=== PATIENT | female | born 1975 | race American Indian/Alaskan Native ===

== ENCOUNTER 2016-12-10 11:25 | Emergency (ER) | payer MEDICARE, MEDICAID ==
[2016-12-10] MEDS ORDERED: Sodium Chloride 0.9% 10 ML Syringe FLUSH PRN ×2 (12:06→14:00)
[2016-12-10] MEDS ORDERED: Sodium Chloride 0.9% 1,000 ML IV ONE (12:07)
[2016-12-10] MEDS ORDERED: HYDROmorphone 1 MG/ML Syringe IVPUSH ONE (12:08)
[2016-12-10] MEDS ORDERED: Ondansetron 4 MG/2 ML SDV IVPUSH ONE (12:08)
--- NOTE | 2016-12-10 12:13 | EDM.PDOC ---
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 Patient has a history of a hysterectomy secondary to cervical cancer and was attempting to follow-up for this with her primary surgeon who was unable to see her until the . Patient reports that since the her pain has become progressive in nature, she endorses weakness and nausea. Patient denies any fever, vomiting , diarrhea. Patient denies any vaginal bleeding or dysuria, she does complain that she feels like something is "leaking inside of her" - Related Data Allergies Allergy/AdvReac Type Severity Reaction Status Date / Time prochlorperazine edisylate Allergy Mild Hives Verified 06/18/14 13:15 [From Compazine] prochlorperazine maleate Allergy Mild Hives Verified 06/18/14 13:03 [From Compazine] Home Meds: Home Meds Calcium Carb & Citrate/Vit D3 [Calcium + D3 ER Tablet] 12/10/16 [History] Omeprazole 12/10/16 [History] Vit B12/Intrins Fact/Fa Cmb #2 [Intrinsi [id number]] 12/10/16 [History] Past Medical History Cardiovascular History: Reports: Heart Murmur 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 ED EXAM, RENAL/ - Physical Exam Exam: See Below Exam Limited By: No Limitations General Appearance: Alert, WD/WN, Anxious, Moderate Distress (secondary to pain) Head: Atraumatic Neck: Normal Inspection Respiratory/Chest: No Respiratory Distress, Lungs Clear Cardiovascular: Normal Peripheral Pulses, Regular Rate, Rhythm, No Murmur GI/Abdominal: Normal Bowel Sounds, Soft, Pelvis Stable, Tender (generalized tenderness, increased to palpation to mid pelvic region worse on the left than the right) (Female) Exam: Deferred Back Exam: Normal Inspection Extremities: Normal Inspection, Normal Range of Motion Neurological: Alert, Oriented, CN II-XII Intact Psychiatric: Normal Affect, Anxious Skin Exam: Warm, Dry, Intact Lymphatic: No Adenopathy Course - Vital Signs Last Recorded V/S: Last Vital Signs Temp 36.1 C 12/10/16 14:38 Pulse 115 H 12/10/16 14:38 Resp 14 12/10/16 14:38 BP 112/77 12/10/16 14:38 Pulse Ox 100 12/10/16 14:38 Chani is a 40 year old female with a hx of ovarian cysts who presents to the ED today with c/o increasing pelvic pain after being diagnosed with "possible ruptured cyst" on the 8th of this month. patient on exam does have mid pelvic tenderness, she is otherwise nontoxic appearing and well-hydrated. Peripheral IV was established and patient was given a liter of normal saline here with Zofran for nausea and Dilaudid for pain. Patient continued to complain of nausea and was given a dose of Reglan and Benadryl with fast improvement in her symptoms. Repeat ultrasound was obtained today and was inconclusive. Follow-up CT scan was obtained with IV contrast which is negative for any acute findings, patient does have a small hepatic cyst which she was notified of and is likely benign. Blood work was evaluated including a CBC, CMP, these are unremarkable. Urinalysis is negative for infection. Patient continues to deny any vaginal discharge, she reports she has not been sexually active for "years" and is not concerned about any STDs. I did discuss with the patient obtaining a wet prep to make sure there is no bacterial infection which she verbally consented to. Wet prep was obtained and is negative. it is not clear at this time what is causing patient's pelvic pain. I feel based on her benign and reassuring workup today in the emergency department she is stable to be discharged home. Patient is feeling much better after the emergency department stay today and is stable to be discharged home, I would like her to follow up with her primary care provider in the next week. Patient's condition take ibuprofen for her pain , 600 mg every 6 hours as needed, I will send her home with a small supply of [place] for severe pain, narcotic safety was discussed. I did check patient's opioid use on the [place] prescription monitoring program, she has no indications of opioid abuse.patient was encouraged to stay well hydrated, reasons to return to the emergency department were discussed in detail. She was agreeable to plan of care and was discharged with her friend driving. - Orders/Labs/Meds Orders: Active Orders 24 hr Category Date Time Status Peripheral IV Care [RC] . DIRECTED Care 12/10/16 12:06 Active Abdomen Pelvis w Cont [CT] Stat Exams 12/10/16 13:34 Taken Pelvis Non OB Ltd [US] Stat Exams 12/10/16 12:08 Taken Transvaginal Non OB [US] Stat Exams 12/10/16 13:15 Taken Sodium Chloride 0.9% [Saline Flush] Med 12/10/16 12:06 Active 10 ml FLUSH ASDIRECTED PRN Peripheral IV Insertion Adult [OM.PC] Routine Oth 12/10/16 12:06 Ordered Medication Orders Sodium Chloride (Saline Flush) 10 ml FLUSH ASDIRECTED PRN PRN Reason: Keep Vein Open Last Admin: 12/10/16 13:48 Dose: 10 ml Labs: Laboratory Tests 12/10/16 12/10/16 12/10/16 Range/Units 12:20 12:20 14:49 WBC 6.7 (4.5-11.0) K/uL RBC 4.87 (3.30-5.50) M/uL Hgb 14.2 (12.0-15.0) g/dL Hct 42.6 (36.0-48.0) % MCV 88 (80-98) fL MCH 29 (27-31) pg MCHC 33 (32-36) % Plt Count 287 (150-400) K/uL Neut % (Auto) 61 (36-66) % Lymph % (Auto) 30 (24-44) % B[place] % (Auto) 7 H (2-6) % Eos % (Auto) 2 (2-4) % Baso % (Auto) 0 (0-1) % Sodium 142 (140-148) mmol/L Potassium 4.5 (3.6-5.2) mmol/L Chloride 108 (100-108) mmol/L Carbon Dioxide 29 (21-32) mmol/L Anion Gap 5.0 (5.0-14.0) mmol/L BUN 10 (7-18) mg/dL Creatinine 0.8 D (0.6-1.0) mg/dL Est Cr Clr Drug Dosing 88.38 mL/min Estimated GFR (MDRD) > 60 (>60) Glucose 93 (74-106) mg/dL Calcium 8.7 (8.5-10.1) mg/dL Total Bilirubin 0.3 (0.2-1.0) mg/dL AST 17 (15-37) U/L ALT 27 (12-78) U/L Alkaline Phosphatase 102 (46-116) U/L Total Protein 7.9 (6.4-8.2) g/dL Albumin 3.7 (3.4-5.0) g/dL Globulin 4.2 H (2.3-3.5) g/dL Albumin/Globulin Ratio 0.9 L (1.2-2.2) Urine Color Yellow Urine Appearance Clear Urine pH 6.0 (4.5-8.0) Ur Specific Ola 1.010 (1.008-1.030) Urine Protein Negative (NEGATIVE) mg/dL Urine Glucose (UA) Normal (NEGATIVE) mg/dL Urine Ketones Negative (NEGATIVE) mg/dL Urine Occult Blood Negative (NEGATIVE) Urine Nitrite Negative (NEGATIVE) Urine Bilirubin Negative (NEGATIVE) Urine Urobilinogen Normal (NORMAL) mg/dL Ur Leukocyte Esterase Negative (NEGATIVE) Urine RBC 0-5 (0-5) Urine WBC 0-5 (0-5) Ur Epithelial Cells Few Amorphous Sediment Rare Urine Bacteria Few Urine Mucus Rare Meds: Medications Generic Name Dose Route Start Last Admin Trade Name Freq PRN Reason Stop Dose Admin Sodium Chloride 10 ml 12/10/16 12:06 12/10/16 13:48 Saline Flush FLUSH 10 ml ASDIRECTED PRN Administration Keep Vein Open Discontinued Medications Generic Name Dose Route Start Last Admin Trade Name Freq PRN Reason Stop Dose Admin Diphenhydramine HCl 25 mg 12/10/16 13:59 12/10/16 14:08 Benadryl IVPUSH 12/10/16 14:00 25 mg ONETIME ONE Administration Hydromorphone HCl 1 mg 08/12/17 12:08 12/10/16 13:49 Dilaudid IVPUSH 12/10/16 12:09 1 mg ONETIME ONE Administration Hydromorphone HCl 0.5 mg 12/10/16 14:00 12/10/16 14:13 Dilaudid IVPUSH 12/10/16 14:01 0.5 mg ONETIME ONE Administration Sodium Chloride 1,000 mls @ 999 mls/hr 12/10/16 12:07 12/10/16 13:49 Normal Saline IV 12/10/16 13:07 999 mls/hr .BOLUS ONE Administration Sodium Chloride 70 mls @ 3 mls/sec 12/10/16 14:00 12/10/16 14:07 Normal Saline IV 12/10/16 14:01 3 mls/sec ASDIRECTED ONE Administration Iopamidol 100 ml 12/10/16 14:00 12/10/16 14:07 Isovue-300 (61%) IV 12/10/16 14:01 100 ml . DIRECTED PRN Administration RADIOLOGY EXAM Metoclopramide HCl 5 mg 12/10/16 14:00 12/10/16 14:09 Reglan IVPUSH 12/10/16 14:01 5 mg ONETIME ONE Administration Ondansetron HCl 4 mg 12/10/16 12:08 12/10/16 13:48 Zofran IVPUSH 12/10/16 12:09 4 mg ONETIME ONE Administration Sodium Chloride 10 ml 12/10/16 14:00 12/10/16 14:07 Saline Flush FLUSH 12/10/16 14:01 10 ml . DIRECTED PRN Administration [id number] EXAM Departure - Departure Time of Disposition: 16:00 Disposition: Home, Self-Care 01 Condition: Good Clinical Impression: Pain in pelvis - Discharge Information Instructions: Pelvic Pain, Female Referrals: Jorje Mora MD [Primary Care Provider] - Forms: ED Department Discharge Additional Instructions: Chani, he can take 600 mg of ibuprofen every 6 hours as needed for pain. I have discharged you with [place] for pain which is a narcotic, please do not drive when you take this. Please make sure you're drinking plenty of fluids and follow up with her primary doctor sometime this next week. If you develop any worsening symptoms or concerns please return to the emergency department. - My Orders Last 24 Hours: My Active Orders 12/10/16 12:06 Peripheral IV Care [RC] . DIRECTED Sodium Chloride 0.9% [Saline Flush] 10 ml FLUSH ASDIRECTED PRN Peripheral IV Insertion Adult [OM.PC] Routine 12/10/16 12:08 Pelvis Non OB Ltd [US] Stat 12/10/16 13:15 Transvaginal Non OB [US] Stat 12/10/16 13:34 Abdomen Pelvis w Cont [CT] Stat - Assessment/Plan Last 24 Hours: My Active Orders 12/10/16 12:06 Peripheral IV Care [RC] . DIRECTED Sodium Chloride 0.9% [Saline Flush] 10 ml FLUSH ASDIRECTED PRN Peripheral IV Insertion Adult [OM.PC] Routine 12/10/16 12:08 Pelvis Non OB Ltd [US] Stat 12/10/16 13:15 Transvaginal Non OB [US] Stat 12/10/16 13:34 Abdomen Pelvis w Cont [CT] Stat
[2016-12-10] MEDS ORDERED: diphenhydrAMINE 50 MG/ML SDV IVPUSH ONE (13:59)
[2016-12-10] MEDS ORDERED: HYDROmorphone 0.5 MG/0.5 ML Syringe IVPUSH ONE (14:00)
[2016-12-10] MEDS ORDERED: Iopamidol 612 MG/ML 100 ML Bottle IV PRN (14:00)
[2016-12-10] MEDS ORDERED: Metoclopramide 10 MG/2 ML SDV IVPUSH ONE (14:00)
[2016-12-10 14:39] VITALS: BP 112/77
--- NOTE | 2016-12-12 10:32 | US ---
Pelvis Non OB Ltd INDICATION: Pelvic pain, recent ruptured cyst, rule out torsion TECHNIQUE: Transabdominal and transvaginal pelvic ultrasound performed. COMPARISON: 09/16/2014 FINDINGS: Exam limited by overlying bowel gas. Uterus surgically absent.Neither ovary identified. No adnexal masses seen. No free fluid seen in the pelvis. IMPRESSION: Limited study. Surgically absent uterus. Neither ovary seen. No adnexal masses.
== END 2016-12-10 15:50 | disposition home or self-care (01) ==
LOC: JP.ED 11:25
DX: R10.2 Pelvic and perineal pain (principal); R11.0 Nausea; Z90.49 Acquired absence of other specified parts of digestive tract; Z98.890 Other specified postprocedural states; Z88.8 Allergy status to other drugs, medicaments and biological substances; Z90.710 Acquired absence of both cervix and uterus; Z85.41 Personal history of malignant neoplasm of cervix uteri
CPT/HCPCS: 36415; 74177; 76830; 76857; 80053; 81001; 85025; 87210; 96361; 96374; 96375; 96376; 99284; J1170; J1200; J2405; J2765; J7030; J7040; J7050; Q9967

== ENCOUNTER 2018-12-03 22:29 | Emergency (ER) | payer MEDICARE, MEDICAID ==
[2018-12-03 22:47] VITALS: BP 167/86; PULSE 57
--- NOTE | 2018-12-03 23:33 | EDM.PDOC ---
ED HPI GENERAL MEDICAL PROBLEM - General Chief Complaint: Lower Extremity Injury/Pain Stated Complaint: CRAMP IN RIGHT LEG Time Seen by Provider: 12/03/18 23:00 Source of Information: Reports: Patient History Limitations: Reports: No Limitations - History of Present Illness INITIAL COMMENTS - FREE TEXT/NARRATIVE: 42-year-old female who is been having recurring leg pain and cramps in the right thigh and calf over the past week. She's been trying to stay hydrated and active but it doesn't seem to be helping. No increase in activity, no fevers or chills, no joint pains. She was discussing her symptoms with a relative, they said she has a blood clot in her leg and should get it checked out so she came in. Onset: Gradual Duration: Day(s): (Symptoms over the last 1-2 weeks) Location: Reports: Lower Extremity, Right Associated Symptoms: Reports: No Other Symptoms Right Leg Pain Score (Numeric/FACES): 7 - Related Data Allergies Allergy/AdvReac Type Severity Reaction Status Date / Time prochlorperazine edisylate Allergy Mild Hives Verified 12/03/18 22:52 [From Compazine] prochlorperazine maleate Allergy Mild Hives Verified 12/03/18 22:52 [From Compazine] Home Meds: Home Meds Calcium Carb & Citrate/Vit D3 [Calcium + D3 ER Tablet] 1 tab PO DAILY 12/10/16 [ History] Omeprazole 1 tab PO DAILY 12/10/16 [History] Vit B12/Intrins Fact/Fa Cmb #2 [Intrinsi [id number]] 1 tab PO DAILY 12/10/16 [ History] Estradiol 1 tab PO DAILY 12/03/18 [History] atoMOXetine HCl [Atomoxetine HCl] 1 tab PO DAILY 12/03/18 [History] Past Medical History Cardiovascular History: Reports: Heart Murmur [place] GU[employer] History: Reports: Polycystic Ovaries - Past Surgical History HEENT Surgical History: Reports: Adenoidectomy, Tonsillectomy GI Surgical History: Reports: Appendectomy, Cholecystectomy, Hernia Repair/Other Female Surgical History: Reports: Hysterectomy Social & Family History - Tobacco Use Smoking Status *Q: Never Smoker - Recreational Drug Use Recreational Drug Use: No Review of Systems - Review of Systems Review Of Systems: See Below Constitutional: Denies: Fever Respiratory: Denies: Shortness of Breath Cardiovascular: Denies: Chest Pain GI/Abdominal: Denies: Abdominal Pain Skin: Denies: Rash (No rash over the painful area, no bruising) Neurological: Denies: Paresthesia ED EXAM, GENERAL - Physical Exam Exam: See Below Exam Limited By: No Limitations General Appearance: Alert, No Apparent Distress Respiratory/Chest: No Respiratory Distress Cardiovascular: Regular Rate, Rhythm Extremities: Other (His exam is otherwise limited to the lower extremities. Both legs looks symmetric, there is no objective swelling of the right leg compared to the left. Dorsalis pedis pulses intact. She has tenderness to palpation of the gastrocnemius and hamstring area of the leg.) Course - Vital Signs Last Recorded V/S: Last Vital Signs Temp 95.6 F 12/03/18 22:51 Pulse 57 L 12/03/18 22:51 Resp 16 12/03/18 22:51 BP 167/86 H 12/03/18 22:51 Pulse Ox 97 12/03/18 22:51 - Orders/Labs/Meds Labs: Laboratory Tests 12/03/18 12/03/18 Range/Units 23:17 23:17 WBC 7.7 (4.5-11.0) K/uL RBC 4.75 (3.30-5.50) M/uL Hgb 14.0 (12.0-15.0) g/dL Hct 42.6 (36.0-48.0) % MCV 90 (80-98) fL MCH 30 (27-31) pg MCHC 33 (32-36) % Plt Count 322 (150-400) K/uL Neut % (Auto) 53 (36-66) % Lymph % (Auto) 33 (24-44) % Blair % (Auto) 10 H (2-6) % Eos % (Auto) 3 (2-4) % Baso % (Auto) 0 (0-1) % Sodium 140 (140-148) mmol/L Potassium 4.1 (3.6-5.2) mmol/L Chloride 105 (100-108) mmol/L Carbon Dioxide 26 (21-32) mmol/L Anion Gap 9.4 (5.0-14.0) mmol/L BUN 11 (7-18) mg/dL Creatinine 0.7 (0.6-1.0) mg/dL Est Cr Clr Drug Dosing 99.01 mL/min Estimated GFR (MDRD) > 60 (>60) Glucose 101 (74-106) mg/dL Calcium 8.6 (8.5-10.1) mg/dL - Re-Assessments/Exams Free Text/Narrative Re-Assessment/Exam: 12/03/18 23:33 CBC and BMP were obtained, and an ultrasound of the right lower extremity to rule out DVT was obtained. 12/04/18 00:03 Ultrasound was negative, CBC and BMP were entirely normal. Patient was reassured and encouraged to increase activity as tolerated. Departure - Departure Time of Disposition: 00:08 Disposition: Home, Self-Care 01 Clinical Impression: Cramps of right lower extremity - Discharge Information Instructions: Muscle Cramps and Spasms, [id number] Referrals: Jorje Mora MD [Primary Care Provider] - Forms: ED Department Discharge Care Plan Goals: Stay hydrated, increase activity as tolerated and recheck in 1-2 weeks if not improving.
--- NOTE | 2018-12-04 01:27 | CRLUS ---
INDICATION: Right leg cramps for 1 week TECHNIQUE: Ultrasound venous duplex lower right extremity. Compression venous exam was performed using dye-scale, color Doppler, and spectral Doppler imaging. COMPARISON: None FINDINGS: Sonographic imaging demonstrates the right common femoral, deep femoral, superficial femoral, popliteal, posterior tibial and greater saphenous and the contralateral left common femoral veins to be fully compressible with normal color Doppler blood flow. IMPRESSION: Normal right lower extremity venous ultrasound, no sign of deep venous thrombosis. Dictated by Jacinta Prater MD @ Dec 04 2018 1:25AM Signed by Dr. Jacinta Prater @ Dec 04 2018 1:26AM
== END 2018-12-04 00:13 | disposition home or self-care (01) ==
LOC: JP.ED 22:29
DX: R25.2 Cramp and spasm (principal); Z98.890 Other specified postprocedural states; Z90.49 Acquired absence of other specified parts of digestive tract; Z90.710 Acquired absence of both cervix and uterus; Z88.8 Allergy status to other drugs, medicaments and biological substances
CPT/HCPCS: 36415; 80048; 85025; 93971-RT; 99282; 99284-25

== ENCOUNTER 2019-08-18 06:00 | Inpatient (IN) | payer MEDICARE, MEDICAID ==
[2019-08-18] MEDS ORDERED: Sodium Chloride 0.9% 1,000 ML IV STA (06:36)
[2019-08-18] MEDS ORDERED: Ketamine 500 MG/5 ML MDV IV ONE (06:40)
[2019-08-18] MEDS ORDERED: fentaNYL 100 MCG/2 ML SDV IVPUSH ONE (06:40)
--- NOTE | 2019-08-18 06:44 | EDM.PDOC ---
<OfficerDarius - Last Filed: 08/18/19 06:41> ED HPI GENERAL MEDICAL PROBLEM - General Chief Complaint: Genitourinary Problem Stated Complaint: MEDICAL [facility] Time Seen by Provider: 08/18/19 06:32 Source of Information: Reports: Patient, EMS, RN Notes Reviewed History Limitations: Reports: No Limitations - History of Present Illness INITIAL COMMENTS - FREE TEXT/NARRATIVE: 43-year-old female presents emergency department the complaint of bilateral low back pain and burning with urination, she states she said urinary tract symptomology for the last 5 days for the last 3 days she has spiked a fever she admits that she was reluctant to seek care for her urinary symptoms. 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: See EMS Report Lower Back Pain Score (Numeric/FACES): 7 - Related Data Allergies Allergy/AdvReac Type Severity Reaction Status Date / Time prochlorperazine edisylate Allergy Mild Hives Verified 08/18/19 06:08 [From Compazine] prochlorperazine maleate Allergy Mild Hives Verified 08/18/19 06:08 [From Compazine] Home Meds: Home Meds estradioL [Estradiol] 1 tab PO DAILY 12/03/18 [History] Omeprazole 40 mg PO DAILY 08/18/19 [History] lamoTRIgine [Lamotrigine] 50 mg PO DAILY 08/18/19 [History] Past Medical History Cardiovascular History: Reports: Heart Murmur 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 History: Reports: Polycystic Ovaries - Infectious Disease History Infectious Disease History: Reports: Chicken Pox - Past Surgical History HEENT Surgical History: Reports: Adenoidectomy, Tonsillectomy GI Surgical History: Reports: Appendectomy, Cholecystectomy, Hernia Repair/Other Female Surgical History: Reports: Hysterectomy Social & Family History - Family History Family Medical History: Noncontributory - Tobacco Use Smoking Status *Q: Former Smoker Used Tobacco, but Quit: Yes Month/Year Tobacco Last Used: several years ago; patient report is unclear - Caffeine Use Caffeine Use: Reports: Coffee - Recreational Drug Use Recreational Drug Use: No ED ROS GENERAL - Review of Systems Review Of Systems: See Below Constitutional: Reports: Fever, Chills HEENT: Reports: No Symptoms Respiratory: Reports: No Symptoms Cardiovascular: Reports: No Symptoms GI/Abdominal: Reports: Nausea. Denies: Vomiting : Reports: Dysuria, Flank Pain Musculoskeletal: Reports: Back Pain ED EXAM, RENAL/ - Physical Exam Exam: See Below Exam Limited By: No Limitations General Appearance: Alert, Mild Distress Neck: Normal Inspection, Supple, Non-Tender, Full Range of Motion Respiratory/Chest: No Respiratory Distress, Lungs Clear, Normal Breath Sounds, No Accessory Muscle Use, Chest Non-Tender Cardiovascular: Regular Rate, Rhythm, No Murmur GI/Abdominal: Normal Bowel Sounds, Soft, Non-Tender Back Exam: Normal Inspection, Full Range of Motion, CVA Tenderness (R), CVA Tenderness (L) Course - Vital Signs Last Recorded V/S: Last Vital Signs Temp 97.3 F 08/18/19 10:28 Pulse 77 08/18/19 10:28 Resp 16 08/18/19 10:28 BP 121/59 L 08/18/19 10:28 Pulse Ox 97 08/18/19 10:28 - Orders/Labs/Meds Orders: Active Orders 24 hr Category Date Time Status CULTURE BLOOD [BC] Urgent Lab 08/18/19 06:45 Received CULTURE BLOOD [BC] Urgent Lab 08/18/19 06:55 Received CULTURE URINE [RM] Stat Lab 08/18/19 07:28 Received Blood Culture x2 Reflex Set [OM.PC] Urgent Oth 08/18/19 06:38 Ordered Medication Orders Acetaminophen (Tylenol) 650 mg PO Q4H PRN PRN Reason: Pain (Mild 1-3)/fever Last Admin: 08/18/19 11:04 Dose: 650 mg Enoxaparin Sodium (Lovenox) 40 mg SUBCUT Q24H [facility] Last Admin: 08/18/19 11:17 Dose: 40 mg Hydromorphone HCl (Dilaudid) 0.5 mg IVPUSH Q2H PRN PRN Reason: Pain Last Admin: 08/18/19 10:45 Dose: 0.5 mg Sodium Chloride (Normal Saline) 1,000 mls @ 250 mls/hr IV ASDIRECTED [facility] Last Admin: 08/18/19 08:38 Dose: 250 mls/hr Ceftriaxone Sodium 1 gm/ (Sodium Chloride) 50 mls @ 100 mls/hr IV Q24H [facility] Last Admin: 08/18/19 10:58 Dose: 100 mls/hr Sodium Chloride (Normal Saline) 1,000 mls @ 125 mls/hr IV ASDIRECTED GAB Lamotrigine (Lamotrigine) 50 mg PO BEDTIME GAB Non-Formulary Medication (Estradiol [Estradiol]) 1 tab PO DAILY GAB Ondansetron HCl (Zofran) 4 mg IV Q4H PRN PRN Reason: Nausea/Vomiting Pantoprazole Sodium (Protonix) 40 mg PO ACBREAKFAST GAB Polyethylene Glycol (Miralax) 17 gm PO DAILY PRN PRN Reason: Constipation Sodium Chloride (Saline Flush) 10 ml FLUSH ASDIRECTED PRN PRN Reason: Keep Vein Open Labs: Laboratory Tests 08/18/19 08/18/19 08/18/19 Range/Units 06:18 06:55 06:55 WBC 13.2 H (4.5-11.0) K/uL RBC 4.59 (3.30-5.50) M/uL Hgb 13.3 (12.0-15.0) g/dL Hct 39.7 (36.0-48.0) % MCV 87 (80-98) fL MCH 29 (27-31) pg MCHC 34 (32-36) % Plt Count 326 (150-400) K/uL Neut % (Auto) 81 H (36-66) % Lymph % (Auto) 9 L (24-44) % [place] % (Auto) 10 H (2-6) % Eos % (Auto) 0 L (2-4) % Baso % (Auto) 0 (0-1) % Sodium 133 L (140-148) mmol/L Potassium 3.7 (3.6-5.2) mmol/L Chloride 99 L (100-108) mmol/L Carbon Dioxide 25 (21-32) mmol/L Anion Gap 12.7 (5.0-14.0) mmol/L BUN 6 L (7-18) mg/dL Creatinine 0.6 (0.6-1.0) mg/dL Est Cr Clr Drug Dosing 113.70 mL/min Estimated GFR (MDRD) > 60 (>60) Glucose 99 (74-106) mg/dL Lactic Acid (0.4-2.0) mmol/L Calcium 7.8 L (8.5-10.1) mg/dL Total Bilirubin 0.4 (0.2-1.0) mg/dL AST 31 D (15-37) U/L ALT 60 D (12-78) U/L Alkaline Phosphatase 127 H (46-116) U/L C-Reactive Protein (0.0-0.3) mg/dL Total Protein 6.8 (6.4-8.2) g/dL Albumin 3.0 L (3.4-5.0) g/dL Globulin 3.8 H (2.3-3.5) g/dL Albumin/Globulin Ratio 0.8 L (1.2-2.2) Lipase 93 (73-393) U/L Procalcitonin ng/mL Urine Color Yellow (YELLOW) Urine Appearance Slightly cloudy A (CLEAR) Urine pH 7.0 (5.0-8.0) Ur Specific [place] 1.015 (1.008-1.030) Urine Protein Negative (NEGATIVE) mg/dL Urine Glucose (UA) Negative (NEGATIVE) mg/dL Urine Ketones 15 H (NEGATIVE) mg/dL Urine Occult Blood Moderate H (NEGATIVE) Urine Nitrite Negative (NEGATIVE) Urine Bilirubin Negative (NEGATIVE) Urine Urobilinogen 0.2 (0.2-1.0) EU/dL Ur Leukocyte Esterase Large H (NEGATIVE) Urine RBC 5-10 H (0-5) Urine WBC 20-30 H (0-5) Ur Epithelial Cells Rare Amorphous Sediment Not seen Urine Bacteria Moderate Urine Mucus Not seen 08/18/19 08/18/19 08/18/19 Range/Units 06:55 06:55 06:55 WBC (4.5-11.0) K/uL RBC (3.30-5.50) M/uL Hgb (12.0-15.0) g/dL Hct (36.0-48.0) % MCV (80-98) fL MCH (27-31) pg MCHC (32-36) % Plt Count (150-400) K/uL Neut % (Auto) (36-66) % Lymph % (Auto) (24-44) % [place] % (Auto) (2-6) % Eos % (Auto) (2-4) % Baso % (Auto) (0-1) % Sodium (140-148) mmol/L Potassium (3.6-5.2) mmol/L Chloride (100-108) mmol/L Carbon Dioxide (21-32) mmol/L Anion Gap (5.0-14.0) mmol/L BUN (7-18) mg/dL Creatinine (0.6-1.0) mg/dL Est Cr Clr Drug Dosing mL/min Estimated GFR (MDRD) (>60) Glucose (74-106) mg/dL Lactic Acid 0.9 (0.4-2.0) mmol/L Calcium (8.5-10.1) mg/dL Total Bilirubin (0.2-1.0) mg/dL AST (15-37) U/L ALT (12-78) U/L Alkaline Phosphatase (46-116) U/L C-Reactive Protein 9.73 H (0.0-0.3) mg/dL Total Protein (6.4-8.2) g/dL Albumin (3.4-5.0) g/dL Globulin (2.3-3.5) g/dL Albumin/Globulin Ratio (1.2-2.2) Lipase (73-393) U/L Procalcitonin 0.08 ng/mL Urine Color (YELLOW) Urine Appearance (CLEAR) Urine pH (5.0-8.0) Ur Specific [place] (1.008-1.030) Urine Protein (NEGATIVE) mg/dL Urine Glucose (UA) (NEGATIVE) mg/dL Urine Ketones (NEGATIVE) mg/dL Urine Occult Blood (NEGATIVE) Urine Nitrite (NEGATIVE) Urine Bilirubin (NEGATIVE) Urine Urobilinogen (0.2-1.0) EU/dL Ur Leukocyte Esterase (NEGATIVE) Urine RBC (0-5) Urine WBC (0-5) Ur Epithelial Cells Amorphous Sediment Urine Bacteria Urine Mucus Meds: Medications Generic Name Dose Route Start Last Admin Trade Name Freq PRN Reason Stop Dose Admin Acetaminophen 650 mg 08/18/19 10:30 08/18/19 11:04 Tylenol PO 650 mg Q4H PRN Administration Pain (Mild 1-3)/fever Enoxaparin Sodium 40 mg 08/18/19 11:00 08/18/19 11:17 Lovenox SUBCUT 40 mg Q24H GAB Administration Hydromorphone HCl 0.5 mg 08/18/19 10:30 08/18/19 10:45 Dilaudid IVPUSH 0.5 mg Q2H PRN Administration Pain Sodium Chloride 1,000 mls @ 250 mls/hr 08/18/19 08:45 08/18/19 08:38 Normal Saline IV 250 mls/hr ASDIRECTED GAB Administration Ceftriaxone Sodium 1 gm/ 50 mls @ 100 mls/hr 08/18/19 11:00 08/18/19 10:58 Sodium Chloride IV 100 mls/hr Q24H GAB Administration Sodium Chloride 1,000 mls @ 125 mls/hr 08/18/19 10:30 Normal Saline IV ASDIRECTED GAB Lamotrigine 50 mg 08/18/19 21:00 Lamotrigine PO BEDTIME GAB Non-Formulary Medication 1 tab 08/18/19 10:30 Estradiol [Estradiol] PO DAILY GAB Ondansetron HCl 4 mg 08/18/19 10:30 Zofran IV Q4H PRN Nausea/Vomiting Pantoprazole Sodium 40 mg 08/19/19 07:30 Protonix PO ACBREAKFAST GAB Polyethylene Glycol 17 gm 08/18/19 10:30 Miralax PO DAILY PRN Constipation Sodium Chloride 10 ml 08/18/19 10:30 Saline Flush FLUSH ASDIRECTED PRN Keep Vein Open Discontinued Medications Generic Name Dose Route Start Last Admin Trade Name Freq PRN Reason Stop Dose Admin Fentanyl 50 mcg 08/18/19 06:40 08/18/19 06:53 Sublimaze IVPUSH 08/18/19 06:41 50 mcg ONETIME ONE Administration Hydromorphone HCl 0.5 mg 08/18/19 09:08 08/18/19 09:11 Dilaudid IVPUSH 08/18/19 09:09 0.5 mg ONETIME ONE Administration Ceftriaxone Sodium 1 gm/ 50 mls @ 100 mls/hr 08/18/19 06:45 08/18/19 07:04 Sodium Chloride IV 100 mls/hr Q24H GAB Administration Sodium Chloride 1,000 mls @ 999 mls/hr 08/18/19 06:36 08/18/19 06:54 Normal Saline IV 08/18/19 07:36 999 mls/hr .BOLUS STA Administration Ketamine HCl 15 mg 08/18/19 06:40 08/18/19 06:53 Ketalar IV 08/18/19 06:41 15 mg ONETIME ONE Administration Ketorolac Tromethamine 15 mg 08/18/19 07:41 08/18/19 07:48 Toradol IVPUSH 08/18/19 07:42 15 mg ONETIME ONE Administration Lamotrigine 25 mg 08/18/19 10:30 08/18/19 11:31 Lamotrigine PO Not Given DAILY [facility] Non-Formulary Medication 1 tab 08/18/19 10:30 08/18/19 11:32 Omeprazole [Omeprazole] PO Not Given DAILY GAB Ondansetron HCl 4 mg 08/18/19 07:42 08/18/19 07:48 Zofran IVPUSH 08/18/19 07:43 4 mg ONETIME ONE Administration Departure - Departure Disposition: Admitted As Inpatient 67 Clinical Impression: Pyelonephritis - Discharge Information Sepsis Event Note - Evaluation Sepsis Screening Result: Possible Sepsis Risk - Focused Exam Vital Signs: Vital Signs Temp Pulse Resp BP Pulse Ox 08/18/19 06:13 100.3 F 106 H 18 127/64 95 Date Exam was Performed: 08/18/19 Time Exam was Performed: 06:41 - My Orders Last 24 Hours: My Active Orders 08/18/19 07:28 CULTURE URINE [RM] Stat - Assessment/Plan Last 24 Hours: My Active Orders 08/18/19 07:28 CULTURE URINE [RM] Stat <Andre Rivero D - Last Filed: 08/18/19 11:49> Course - Re-Assessments/Exams Free Text/Narrative Re-Assessment/Exam: 08/18/19 08:23 Patient care received from Officer pending lab and response to treatment. White count is 13,200, lactic acid and procalcitonin are normal. Even after IV ketamine, Dilaudid, Toradol and Zofran patient was still significantly symptomatic. I do not think she is going to tolerate outpatient treatment, and I discussed her case with Dr. Martin of the hospital service and he is going to see the patient to consider admission for IV antibiotics and symptom treatment for pyelonephritis. She still has significant CVA tenderness, especially on the left side. Departure - Departure Time of Disposition: 10:18 Sepsis Event Note - Focused Exam Date Exam was Performed: 08/18/19 Time Exam was Performed: 11:49
[2019-08-18] MEDS ORDERED: cefTRIAXone 1 GM in Sodium Chloride 0.9% 50 ML IV SCH (06:45)
[2019-08-18] MEDS ORDERED: Ketorolac 30 MG/ML SDV IVPUSH ONE (07:41)
[2019-08-18] MEDS ORDERED: Ondansetron 4 MG/2 ML SDV IVPUSH ONE (07:42)
--- NOTE | 2019-08-18 08:39 | PCM.HP.2 ---
H&P History of Present Illness - General Date of Service: 08/18/19 Admit Problem/Dx: Admission Diagnosis/Problem Admission Diagnosis/Problem Pyelonephritis Source of Information: Patient, Provider, RN Notes Reviewed History Limitations: Reports: No Limitations - History of Present Illness Initial Comments - Free Text/Narative: Ms. Olivera is a 43-year-old woman who was admitted through the emergency department with fever, weakness, abdominal and flank pain, secondary to pyelonephritis. She reports first developing urinary symptoms approximately 6 days ago including dysuria, hesitancy, and increased frequency of urination. 3 days ago began to develop fever with progressive weakness. On evaluation in the emergency department white blood cell count is elevated as well as CRP, urinalysis shows evidence of infection and she is noted to have flank pain on physical exam. She was given vigorous IV fluid replacement in the emergency department. Blood cultures and urine culture were obtained and she was started on IV antibiotic therapy with ceftriaxone. She continues to experience a fair amount of pain as well as some nausea. 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 - Infectious Disease History Infectious Disease History: Reports: Chicken Pox - Past Surgical History HEENT Surgical History: Reports: Adenoidectomy, Tonsillectomy GI Surgical History: Reports: Appendectomy, Cholecystectomy, Hernia Repair/Other Female Surgical History: Reports: Hysterectomy Social & Family History - Family History Family Medical History: Noncontributory - Tobacco Use Smoking Status *Q: Former Smoker Used Tobacco, but Quit: Yes Month/Year Tobacco Last Used: several years ago; patient report is unclear - Caffeine Use Caffeine Use: Reports: Coffee - Recreational Drug Use Recreational Drug Use: No H&P Review of Systems - Review of Systems: Review Of Systems: See Below General: Reports: Fever, Chills, Weakness, Decreased Appetite HEENT: Reports: No Symptoms Pulmonary: Reports: No Symptoms Cardiovascular: Reports: No Symptoms Gastrointestinal: Reports: Abdominal Pain, Nausea. Denies: Constipation, Diarrhea, Difficulty Swallowing, Distension, Hematemesis, Hematochezia, Melena, Vomiting Genitourinary: Reports: Dysuria, Frequency, Flank Pain Musculoskeletal: Reports: No Symptoms Skin: Reports: No Symptoms Psychiatric: Reports: No Symptoms Neurological: Reports: No Symptoms Hematologic/Lymphatic: Reports: No Symptoms Immunologic: Reports: No Symptoms Exam - Exam Exam: See Below - Vital Signs Vital Signs: Last Vital Signs Temp 100.3 F 08/18/19 06:13 Pulse 106 H 08/18/19 06:13 Resp 18 08/18/19 06:13 BP 127/64 08/18/19 06:13 Pulse Ox 95 08/18/19 06:13 Weight: 130 lb - Exam Quality Assessment: DVT Prophylaxis General: Alert, Oriented, Cooperative, Moderate Distress HEENT: Conjunctiva Clear, Hearing Intact, Normal Nasal Septum, Posterior Pharynx Clear, Pupils Equal. No: Mucosa Moist & [place] Neck: Supple, Trachea Midline, +2 Carotid Pulse wo Bruit Lungs: Clear to Auscultation, Normal Respiratory Effort Cardiovascular: Regular Rhythm, Normal S1, Normal S2, Tachycardia. No: Systolic Murmur, Diastolic Murmur GI/Abdominal Exam: Soft, No Organomegaly, Tender. No: Distended, Guarding, Rigid, Rebound Extremities: Non-Tender, No Pedal Edema Skin: Warm, Dry, Intact Neurological: Cranial Nerves Intact, Normal Speech, Normal Tone, Sensation Intact. No: Focal Deficit Neuro Extensive - Mental Status: Alert, Oriented x3, Normal Mood/Affect, Normal Cognition, Memory Intact - Patient Data Lab Results Last 24 hrs: Laboratory Results - last 24 hr 08/18/19 08/18/19 08/18/19 Range/Units 06:18 06:55 06:55 WBC 13.2 H (4.5-11.0) K/uL RBC 4.59 (3.30-5.50) M/uL Hgb 13.3 (12.0-15.0) g/dL Hct 39.7 (36.0-48.0) % MCV 87 (80-98) fL MCH 29 (27-31) pg MCHC 34 (32-36) % Plt Count 326 (150-400) K/uL Neut % (Auto) 81 H (36-66) % Lymph % (Auto) 9 L (24-44) % [place] % (Auto) 10 H (2-6) % Eos % (Auto) 0 L (2-4) % Baso % (Auto) 0 (0-1) % Sodium 133 L (140-148) mmol/L Potassium 3.7 (3.6-5.2) mmol/L Chloride 99 L (100-108) mmol/L Carbon Dioxide 25 (21-32) mmol/L Anion Gap 12.7 (5.0-14.0) mmol/L BUN 6 L (7-18) mg/dL Creatinine 0.6 (0.6-1.0) mg/dL Est Cr Clr Drug Dosing 113.70 mL/min Estimated GFR (MDRD) > 60 (>60) Glucose 99 (74-106) mg/dL Lactic Acid (0.4-2.0) mmol/L Calcium 7.8 L (8.5-10.1) mg/dL Total Bilirubin 0.4 (0.2-1.0) mg/dL AST 31 D (15-37) U/L ALT 60 D (12-78) U/L Alkaline Phosphatase 127 H (46-116) U/L C-Reactive Protein (0.0-0.3) mg/dL Total Protein 6.8 (6.4-8.2) g/dL Albumin 3.0 L (3.4-5.0) g/dL Globulin 3.8 H (2.3-3.5) g/dL Albumin/Globulin Ratio 0.8 L (1.2-2.2) Lipase 93 (73-393) U/L Procalcitonin ng/mL Urine Color Yellow (YELLOW) Urine Appearance Slightly cloudy A (CLEAR) Urine pH 7.0 (5.0-8.0) Ur Specific [place] 1.015 (1.008-1.030) Urine Protein Negative (NEGATIVE) mg/dL Urine Glucose (UA) Negative (NEGATIVE) mg/dL Urine Ketones 15 H (NEGATIVE) mg/dL Urine Occult Blood Moderate H (NEGATIVE) Urine Nitrite Negative (NEGATIVE) Urine Bilirubin Negative (NEGATIVE) Urine Urobilinogen 0.2 (0.2-1.0) EU/dL Ur Leukocyte Esterase Large H (NEGATIVE) Urine RBC 5-10 H (0-5) Urine WBC 20-30 H (0-5) Ur Epithelial Cells Rare Amorphous Sediment Not seen Urine Bacteria Moderate Urine Mucus Not seen 08/18/19 08/18/19 08/18/19 Range/Units 06:55 06:55 06:55 WBC (4.5-11.0) K/uL RBC (3.30-5.50) M/uL Hgb (12.0-15.0) g/dL Hct (36.0-48.0) % MCV (80-98) fL MCH (27-31) pg MCHC (32-36) % Plt Count (150-400) K/uL Neut % (Auto) (36-66) % Lymph % (Auto) (24-44) % [place] % (Auto) (2-6) % Eos % (Auto) (2-4) % Baso % (Auto) (0-1) % Sodium (140-148) mmol/L Potassium (3.6-5.2) mmol/L Chloride (100-108) mmol/L Carbon Dioxide (21-32) mmol/L Anion Gap (5.0-14.0) mmol/L BUN (7-18) mg/dL Creatinine (0.6-1.0) mg/dL Est Cr Clr Drug Dosing mL/min Estimated GFR (MDRD) (>60) Glucose (74-106) mg/dL Lactic Acid 0.9 (0.4-2.0) mmol/L Calcium (8.5-10.1) mg/dL Total Bilirubin (0.2-1.0) mg/dL AST (15-37) U/L ALT (12-78) U/L Alkaline Phosphatase (46-116) U/L C-Reactive Protein 9.73 H (0.0-0.3) mg/dL Total Protein (6.4-8.2) g/dL Albumin (3.4-5.0) g/dL Globulin (2.3-3.5) g/dL Albumin/Globulin Ratio (1.2-2.2) Lipase (73-393) U/L Procalcitonin 0.08 ng/mL Urine Color (YELLOW) Urine Appearance (CLEAR) Urine pH (5.0-8.0) Ur Specific [place] (1.008-1.030) Urine Protein (NEGATIVE) mg/dL Urine Glucose (UA) (NEGATIVE) mg/dL Urine Ketones (NEGATIVE) mg/dL Urine Occult Blood (NEGATIVE) Urine Nitrite (NEGATIVE) Urine Bilirubin (NEGATIVE) Urine Urobilinogen (0.2-1.0) EU/dL Ur Leukocyte Esterase (NEGATIVE) Urine RBC (0-5) Urine WBC (0-5) Ur Epithelial Cells Amorphous Sediment Urine Bacteria Urine Mucus Result Diagrams: 08/18/19 06:55 08/18/19 06:55 Sepsis Event Note - Evaluation Sepsis Screening Result: Possible Sepsis Risk - Focused Exam Vital Signs: Vital Signs Temp Pulse Resp BP Pulse Ox 08/18/19 06:13 100.3 F 106 H 18 127/64 95 Date Exam was Performed: 08/18/19 Time Exam was Performed: 10:50 *Q Meaningful Use (ADM) - VTE Risk Assess *Q Each Risk Factor Represents 1 Point: Age 41 - 59 years, Oral Contraceptives or Hormone Replacement Therapy Total Score 1 Point Risk Factors: 2 Each Risk Factor Represents 2 Points: None Total Score 2 Point Risk Factors: 0 Each Risk Factor Represents 3 Points: None Total Score 3 Point Risk Factors: 0 Each Risk Factor Represents 5 Points: None Total Score 5 Point Risk Factors: 0 Venous Thromboembolism Risk Factor Score *Q: 2 Problem List Initiated/Reviewed/Updated: Yes Orders Last 24hrs: Active Orders 24 hr Category Date Time Status Patient Status Manage Transfer [TRANSFER] Routine ADT 08/18/19 08:33 Ordered CULTURE BLOOD [BC] Urgent Lab 08/18/19 06:45 Received CULTURE BLOOD [BC] Urgent Lab 08/18/19 06:55 Received CULTURE URINE [RM] Stat Lab 08/18/19 07:28 Received Sodium Chloride 0.9% [Normal Saline] 1,000 ml Med 08/18/19 08:45 Active IV ASDIRECTED cefTRIAXone [Rocephin] 1 gm Med 08/18/19 06:45 Active Sodium Chloride 0.9% [Normal Saline] 50 ml IV Q24H Blood Culture x2 Reflex Set [OM.PC] Urgent Oth 08/18/19 06:38 Ordered Severe Sepsis Onset Time [OM.PC] Stat Oth 08/18/19 06:38 Ordered Resuscitation Status Routine Resus Stat 08/18/19 08:35 Ordered Medication Orders Ceftriaxone Sodium 1 gm/ (Sodium Chloride) 50 mls @ 100 mls/hr IV Q24H [facility] Last Admin: 08/18/19 07:04 Dose: 100 mls/hr Sodium Chloride (Normal Saline) 1,000 mls @ 250 mls/hr IV ASDIRECTED [facility] Last Admin: 08/18/19 08:38 Dose: 250 mls/hr Assessment/Plan Comment:: ASSESSMENT AND PLAN PYELONEPHRITIS-symptoms of UTI present for the past 6 days, fever with progressive weakness and nausea over the last 3 days. There has been associated flank and abdominal pain. White blood cell count is elevated and urinalysis is consistent with infection. -Blood and urine cultures pending -Rocephin 1 g IV every 24 hours, pending culture results -IV fluids for hydration -Pain and nausea medication as needed MAINTENANCE ISSUES -DVT prophylaxis; Lovenox 40 mg subcu daily -GI prophylaxis; continue outpatient PPI therapy -[place] catheter; not indicated -Nutrition; regular diet -Nicotine dependence; not required CODE STATUS-FULL CODE ADMISSION STATUS-patient will be admitted to inpatient status, expect at least a 2 night hospital stay for evaluation and management of problems as outlined above. At the time of this admission I do not reasonably expected evaluation and management of this problem will require more than a 96 hour hospital stay. DISPOSITION-anticipate discharge to home after the hospital stay. PRIMARY CARE PROVIDER- - Mortality Measure Prognosis:: Good
[2019-08-18] MEDS ORDERED: Sodium Chloride 0.9% 1,000 ML IV SCH (08:45)
[2019-08-18] MEDS ORDERED: HYDROmorphone 0.5 MG/0.5 ML Syringe IVPUSH ONE (09:08)
[2019-08-18] MEDS ORDERED: Sodium Chloride 0.9% 10 ML Syringe FLUSH PRN (10:30)
[2019-08-18] MEDS ORDERED: OMEPRAZOLE PO SCH (10:30)
[2019-08-18] MEDS ORDERED: Polyethylene Glycol 3350 Powder 17 GM Packet PO PRN (10:30)
[2019-08-18] MEDS ORDERED: ESTRADIOL PO SCH (10:30)
[2019-08-18] MEDS ORDERED: lamoTRIgine 25 MG Tab PO SCH (10:30)
[2019-08-18] MEDS: HYDROmorphone 0.5 MG/0.5 ML Syringe IVPUSH PRN ×6 (10:45→22:34)
[2019-08-18] MEDS: cefTRIAXone 1 GM in Sodium Chloride 0.9% 50 ML IV SCH (10:58)
[2019-08-18] MEDS: Acetaminophen 325 MG Tab PO PRN ×3 (11:04→20:26)
[2019-08-18] MEDS: Enoxaparin 40 MG/0.4 ML Syringe SUBCUT SCH (11:17)
[2019-08-18] MEDS: Sodium Chloride 0.9% 1,000 ML IV SCH ×2 (12:57→20:30)
[2019-08-18] MEDS: Ondansetron 4 MG/2 ML SDV IV PRN (14:29)
[2019-08-18] MEDS ORDERED: Non-Formulary Medication 1 Each (Estradiol [Estradiol] 1 MG) PO SCH (20:00)
[2019-08-18] MEDS: Estradiol 0.5 MG Tab PO SCH (20:26)
[2019-08-18] MEDS: lamoTRIgine 25 MG Tab PO SCH (20:26)
[2019-08-19] MEDS: Acetaminophen 325 MG Tab PO PRN ×2 (02:09→06:02)
[2019-08-19] MEDS: HYDROmorphone 0.5 MG/0.5 ML Syringe IVPUSH PRN ×5 (02:10→19:37)
[2019-08-19] MEDS: Ondansetron 4 MG/2 ML SDV IV PRN ×4 (03:18→17:37)
[2019-08-19] MEDS: Sodium Chloride 0.9% 1,000 ML IV SCH ×2 (04:26→15:40)
[2019-08-19] MEDS: Pantoprazole 40 MG Tab.CR PO SCH (07:25)
[2019-08-19] MEDS ORDERED: Potassium Chloride 20 MEQ Tab.ER PO ONE (08:00)
[2019-08-19] MEDS: Enoxaparin 40 MG/0.4 ML Syringe SUBCUT SCH (10:23)
[2019-08-19] MEDS: cefTRIAXone 1 GM in Sodium Chloride 0.9% 50 ML IV SCH (10:24)
--- NOTE | 2019-08-19 10:50 | PCM.PN ---
- General Info Date of Service: 08/19/19 Subjective Update: No acute events overnight. Low-grade fever overnight but temperature normal this morning. Still having a fair amount of pain in both flank areas. She does not think the pain is any better today. She has been using less IV pain medication over the past 12 hours. Still has some nausea but is able to keep some food and fluid down. She also has moderate generalized abdominal pain. Urine culture is growing 2 different gram-negative rods but identification is pending. Functional Status: Reports: Pain Controlled, Tolerating Diet - Review of Systems General: Denies: Fever Gastrointestinal: Reports: Abdominal Pain, Nausea Genitourinary: Reports: Flank Pain - Patient Data Vitals - Most Recent: Last Vital Signs Temp 36.1 C 08/19/19 07:19 Pulse 71 08/19/19 07:19 Resp 16 08/19/19 07:19 BP 99/62 08/19/19 07:19 Pulse Ox 93 L 08/19/19 07:40 Weight - Most Recent: 58.967 kg I&O - Last 24 Hours: Intake & Output 08/18/19 08/19/19 08/19/19 22:59 06:59 14:59 Intake Total 1703 1785 Output Total 2100 1100 900 Balance -397 685 -900 Lab Results Last 24 Hours: Laboratory Results - last 24 hr 08/19/19 08/19/19 Range/Units 05:30 05:30 WBC 9.8 (4.5-11.0) K/uL RBC 4.18 (3.30-5.50) M/uL Hgb 11.7 L (12.0-15.0) g/dL Hct 36.8 (36.0-48.0) % MCV 88 (80-98) fL MCH 28 (27-31) pg MCHC 32 (32-36) % Plt Count 327 (150-400) K/uL Neut % (Auto) 75 H (36-66) % Lymph % (Auto) 12 L (24-44) % [place] % (Auto) 13 H (2-6) % Eos % (Auto) 0 L (2-4) % Baso % (Auto) 0 (0-1) % Sodium 136 L (140-148) mmol/L Potassium 3.4 L (3.6-5.2) mmol/L Chloride 102 (100-108) mmol/L Carbon Dioxide 25 (21-32) mmol/L Anion Gap 12.4 (5.0-14.0) mmol/L BUN 4 L (7-18) mg/dL Creatinine 0.6 (0.6-1.0) mg/dL Est Cr Clr Drug Dosing 113.70 mL/min Estimated GFR (MDRD) > 60 (>60) Glucose 99 (74-106) mg/dL Calcium 7.6 L (8.5-10.1) mg/dL Deni Results Last 24 Hours: Microbiology 08/18/19 06:55 Aerobic Blood Culture - Preliminary Blood - Arm, Right NO GROWTH AFTER 1 DAY Anaerobic Blood Culture - Preliminary NO GROWTH AFTER 1 DAY 08/18/19 06:45 Aerobic Blood Culture - Preliminary Blood - Venous NO GROWTH AFTER 1 DAY Anaerobic Blood Culture - Preliminary NO GROWTH AFTER 1 DAY 08/18/19 07:28 Urine Culture - Preliminary Urine, Clean Catch Med Orders - Current: Current Medications Acetaminophen (Tylenol) 650 mg PO Q4H PRN PRN Reason: Pain (Mild 1-3)/fever Last Admin: 08/19/19 06:02 Dose: 650 mg Enoxaparin Sodium (Lovenox) 40 mg SUBCUT Q24H [facility] Last Admin: 08/19/19 10:23 Dose: 40 mg Estradiol (Estradiol) 1 mg PO BEDTIME [facility] Last Admin: 08/18/19 20:26 Dose: 1 mg Hydromorphone HCl (Dilaudid) 0.5 mg IVPUSH Q2H PRN PRN Reason: Pain Last Admin: 08/19/19 10:21 Dose: 0.5 mg Ceftriaxone Sodium 1 gm/ (Sodium Chloride) 50 mls @ 100 mls/hr IV Q24H [facility] Last Admin: 08/19/19 10:24 Dose: 100 mls/hr Sodium Chloride (Normal Saline) 1,000 mls @ 50 mls/hr IV ASDIRECTED [facility] Last Admin: 08/19/19 04:26 Dose: 125 mls/hr Ketorolac Tromethamine (Toradol) 30 mg IVPUSH Q6H PRN PRN Reason: Pain (moderate 4-6) Stop: 08/24/19 10:12 Lamotrigine (Lamotrigine) 50 mg PO BEDTIME [facility] Last Admin: 08/18/19 20:26 Dose: 50 mg Ondansetron HCl (Zofran) 4 mg IV Q4H PRN PRN Reason: Nausea/Vomiting Last Admin: 08/19/19 07:44 Dose: 4 mg Pantoprazole Sodium (Protonix) 40 mg PO ACBREAKFAST [facility] Last Admin: 08/19/19 07:25 Dose: 40 mg Polyethylene Glycol (Miralax) 17 gm PO DAILY PRN PRN Reason: Constipation Senna/Docusate Sodium (Senna Plus) 1 tab PO BID PRN PRN Reason: Constipation Last Admin: 08/19/19 07:42 Dose: 1 tab Sodium Chloride (Saline Flush) 10 ml FLUSH ASDIRECTED PRN PRN Reason: Keep Vein Open Discontinued Medications Fentanyl (Sublimaze) 50 mcg IVPUSH ONETIME ONE Stop: 08/18/19 06:41 Last Admin: 08/18/19 06:53 Dose: 50 mcg Hydromorphone HCl (Dilaudid) 0.5 mg IVPUSH ONETIME ONE Stop: 08/18/19 09:09 Last Admin: 08/18/19 09:11 Dose: 0.5 mg Ceftriaxone Sodium 1 gm/ (Sodium Chloride) 50 mls @ 100 mls/hr IV Q24H [facility] Last Admin: 08/18/19 07:04 Dose: 100 mls/hr Sodium Chloride (Normal Saline) 1,000 mls @ 999 mls/hr IV .BOLUS STA Stop: 08/18/19 07:36 Last Admin: 08/18/19 06:54 Dose: 999 mls/hr Sodium Chloride (Normal Saline) 1,000 mls @ 250 mls/hr IV ASDIRECTED [facility] Last Admin: 08/18/19 08:38 Dose: 250 mls/hr Ketamine HCl (Ketalar) 15 mg IV ONETIME ONE Stop: 08/18/19 06:41 Last Admin: 08/18/19 06:53 Dose: 15 mg Ketorolac Tromethamine (Toradol) 15 mg IVPUSH ONETIME ONE Stop: 08/18/19 07:42 Last Admin: 08/18/19 07:48 Dose: 15 mg Lamotrigine (Lamotrigine) 25 mg PO DAILY [facility] Last Admin: 08/18/19 11:31 Dose: Not Given Non-Formulary Medication (Estradiol [Estradiol]) 1 tab PO DAILY [facility] Last Admin: 08/18/19 13:00 Dose: Not Given Non-Formulary Medication (Omeprazole [Omeprazole]) 1 tab PO DAILY [facility] Last Admin: 08/18/19 11:32 Dose: Not Given Ondansetron HCl (Zofran) 4 mg IVPUSH ONETIME ONE Stop: 08/18/19 07:43 Last Admin: 08/18/19 07:48 Dose: 4 mg Potassium Chloride (Klor-Con M20) 40 meq PO ONETIME ONE Stop: 08/19/19 08:01 Last Admin: 08/19/19 09:13 Dose: 40 meq - Exam Quality Assessment: No: Supplemental Oxygen General: Alert, Oriented, Cooperative, No Acute Distress Lungs: Normal Respiratory Effort Cardiovascular: Regular Rate, Regular Rhythm GI/Abdominal Exam: Soft, No Distention, Tender Extremities: No Pedal Edema. No: Increased Warmth Skin: Warm, Dry Psy/Mental Status: Alert, Normal Affect Sepsis Event Note - Evaluation Sepsis Screening Result: No Definite Risk - Focused Exam Vital Signs: Vital Signs Temp Temp Pulse Pulse Resp BP Pulse Ox 08/19/19 07:40 93 L 08/19/19 07:38 95 08/19/19 07:19 36.1 C 71 16 99/62 93 L 08/19/19 06:02 36.6 C 08/19/19 06:00 36.3 C 74 16 93 L 08/19/19 02:12 37.9 C 89 18 131/71 95 08/19/19 00:03 94 L Date Exam was Performed: 08/19/19 Time Exam was Performed: 12:43 - Problem List Review Problem List Initiated/Reviewed/Updated: Yes - My Orders Last 24 Hours: My Active Orders 08/19/19 10:12 Ketorolac [Toradol] 30 mg IVPUSH Q6H PRN 08/19/19 10:49 Communication Order [RC] ROUTINE 08/20/19 05:00 BASIC METABOLIC PANEL,BMP [CHEM] Timed CBC W/O DIFF,HEMOGRAM [HEME] Timed (1) - Plan Plan:: ASSESSMENT AND PLAN BILATERAL PYELONEPHRITIS-still having a fair amount of pain but vital signs are stable. Urine culture with 2 gram-negative rods but identification is pending. -Follow-up cultures -Ceftriaxone -IV fluids for hydration with rate reduction today -Pain and nausea medication as needed (adding Toradol) MAINTENANCE ISSUES -DVT prophylaxis; enoxaparin -GI prophylaxis; continue outpatient PPI therapy -Colvin catheter; not indicated -Nutrition; regular diet DISPOSITION-anticipate discharge to home after the hospital stay. David Burdick MD
[2019-08-19] MEDS: Ketorolac 30 MG/ML SDV IVPUSH PRN ×3 (11:16→23:18)
[2019-08-19] MEDS ORDERED: Bisacodyl 10 MG Supp RECTAL ONE (13:25)
[2019-08-19] MEDS ORDERED: Sodium Chloride 0.9% 1,000 ML IV SCH (15:45)
[2019-08-19] MEDS: lamoTRIgine 25 MG Tab PO SCH (20:44)
[2019-08-19] MEDS: Estradiol 0.5 MG Tab PO SCH (20:44)
[2019-08-20] MEDS: HYDROmorphone 0.5 MG/0.5 ML Syringe IVPUSH PRN (04:24)
[2019-08-20] MEDS: Ondansetron 4 MG/2 ML SDV IV PRN (04:27)
[2019-08-20] MEDS: Pantoprazole 40 MG Tab.CR PO SCH (07:13)
[2019-08-20] MEDS: Acetaminophen 325 MG Tab PO PRN ×2 (07:23→14:51)
[2019-08-20] MEDS ORDERED: Magnesium Hydroxide 400 MG/5 ML Susp 30 ML Cup PO ONE (08:46)
[2019-08-20] MEDS: Enoxaparin 40 MG/0.4 ML Syringe SUBCUT SCH (10:24)
[2019-08-20] MEDS: cefTRIAXone 1 GM in Sodium Chloride 0.9% 50 ML IV SCH (10:24)
[2019-08-20 11:52] VITALS: BP 109/63; PULSE 66
[2019-08-20] MEDS: Ketorolac 30 MG/ML SDV IVPUSH PRN (12:00)
--- NOTE | 2019-08-20 13:51 | PCM.DCSUM1 ---
Discharge Summary - Hospital Course Brief History: 43-year-old female with history of polycystic ovaries who presented with fever, weakness and abdominal pain. She was admitted for management of bilateral pyelonephritis. Diagnosis: Stroke: No - Discharge Data Discharge Date: 08/20/19 Discharge Disposition: Home, Self-Care 01 Condition: Good - Referral to Home Health Primary Care Physician: PCP None - Discharge Diagnosis/Problem(s) (1) Pyelonephritis SNOMED Code(s): 26348388 ICD Code: N12 - TUBULO-INTERSTITIAL NEPHRITIS, NOT SPCF ACUTE OR CHRONIC Status: Acute Current Visit: Yes - Patient Summary/Data Hospital Course: Chani presented to the emergency room with fever, generalized weakness and bilateral flank pain. Work-up in the emergency room was concerning for bilateral pyelonephritis and urinalysis was strongly suggestive of infection. There was no evidence for sepsis at the time of presentation. After cultures were obtained she was started on ceftriaxone and admitted to the hospital for further management. We did provide IV fluids during the early portion of the hospital stay. She did have some nausea as well as generalized abdominal pain in addition to the flank pain. This did slowly improve over the first couple of days of the hospital stay. We had further improvement in the nausea and abdominal pain after more aggressive bowel stimulation. She has not had any fevers. She has been tolerating a regular diet. Vital signs are all stable. Her urine culture grew out 2 different strains of E. coli which were both essentially pansensitive. She feels well enough to go home at this time and I believe she is safe and stable for discharge. She will be on cefdinir for 7 more days to complete a total of 10 days of treatment for her bilateral pyelonephritis. - Patient Instructions Diet: Regular Diet as Tolerated Activity: As Tolerated Driving: Do Not Drive (if taking pain pills ) Showering/Bathing: May Shower Notify Provider of: Fever, Increased Pain, Nausea and/or Vomiting Other/Special Instructions: 1. You were in the hospital for management of bilateral pyelonephritis (kidney infection). Your urine culture grew out a bacteria called E. coli. This bacteria was sensitive to a variety of antibiotics medications. I do recommend ongoing antibiotic treatment after hospital discharge to complete a total of 10 days of treatment for this infection. Please take cefdinir (Omnicef) 300 mg twice daily with food. Your first dose outside of the hospital will be due on Monday morning. You may use acetaminophen and/or ibuprofen for mild pain. You may use the oxycodone as needed for more intense pain. 2. Continue your usual home medications as previously prescribed. 3. Follow up as scheduled with Dr Childress - Discharge Plan *PRESCRIPTION DRUG MONITORING PROGRAM REVIEWED*: Not Applicable *COPY OF PRESCRIPTION DRUG MONITORING REPORT IN PATIENT [place]: Not Applicable Prescriptions/Med Rec: Cefdinir 300 mg PO BID #14 capsule oxyCODONE 5 mg PO Q4H PRN #10 tab PRN Reason: Pain (Moderate 4-6) Home Medications: Home Meds Omeprazole 40 mg PO DAILY 08/18/19 [History] estradioL [Estradiol] 1 mg PO DAILY 08/18/19 [History] lamoTRIgine [Lamotrigine] 50 mg PO DAILY 08/18/19 [History] Cefdinir 300 mg PO BID #14 capsule 08/20/19 [Rx] oxyCODONE 5 mg PO Q4H PRN #10 tab 08/20/19 [Rx] Oxygen Therapy Mode: Room Air Patient Handouts: Pyelonephritis, Adult, Cefdinir capsules Referrals: Minerva Childress DO [Physician] - 08/29/19 1:40 pm (Please arrive 15 minutes early to register for your appointment.) - Discharge Summary/Plan Comment DC Time >30 min.: No - Patient Data Vitals - Most Recent: Last Vital Signs Temp 36.4 C 08/20/19 11:00 Pulse 66 08/20/19 11:00 Resp 18 08/20/19 11:00 BP 109/63 08/20/19 11:00 Pulse Ox 96 08/20/19 11:00 Weight - Most Recent: 58.967 kg I&O - Last 24 hours: Intake & Output 08/19/19 08/20/19 08/20/19 22:59 06:59 14:59 Intake Total 4125 558 4336 Output Total 600 750 800 Balance 547 93 505 Lab Results - Last 24 hrs: Laboratory Results - last 24 hr 08/20/19 08/20/19 Range/Units 04:15 04:15 WBC 6.5 (4.5-11.0) K/uL RBC 4.50 (3.30-5.50) M/uL Hgb 12.6 (12.0-15.0) g/dL Hct 39.3 (36.0-48.0) % MCV 87 (80-98) fL MCH 28 (27-31) pg MCHC 32 (32-36) % Plt Count 389 (150-400) K/uL Sodium 139 L (140-148) mmol/L Potassium 3.6 (3.6-5.2) mmol/L Chloride 103 (100-108) mmol/L Carbon Dioxide 27 (21-32) mmol/L Anion Gap 12.6 (5.0-14.0) mmol/L BUN 5 L (7-18) mg/dL Creatinine 0.6 (0.6-1.0) mg/dL Est Cr Clr Drug Dosing 113.70 mL/min Estimated GFR (MDRD) > 60 (>60) Glucose 90 (74-106) mg/dL Calcium 7.9 L (8.5-10.1) mg/dL [facility] Results - Last 24 hrs: Microbiology 08/18/19 06:55 Aerobic Blood Culture - Preliminary Blood - Arm, Right NO GROWTH AFTER 2 DAYS Anaerobic Blood Culture - Preliminary NO GROWTH AFTER 2 DAYS 08/18/19 06:45 Aerobic Blood Culture - Preliminary Blood - Venous NO GROWTH AFTER 2 DAYS Anaerobic Blood Culture - Preliminary NO GROWTH AFTER 2 DAYS 08/18/19 07:28 Urine Culture - Final Urine, Clean Catch Escherichia Coli#2 Escherichia Coli Med Orders - Current: Current Medications Acetaminophen (Tylenol) 650 mg PO Q4H PRN PRN Reason: Pain (Mild 1-3)/fever Last Admin: 08/20/19 07:23 Dose: 650 mg Enoxaparin Sodium (Lovenox) 40 mg SUBCUT Q24H [facility] Last Admin: 08/20/19 10:24 Dose: 40 mg Estradiol (Estradiol) 1 mg PO BEDTIME [facility] Last Admin: 08/19/19 20:44 Dose: 1 mg Hydromorphone HCl (Dilaudid) 0.5 mg IVPUSH Q2H PRN PRN Reason: Pain Last Admin: 08/20/19 04:24 Dose: 0.5 mg Ceftriaxone Sodium 1 gm/ (Sodium Chloride) 50 mls @ 100 mls/hr IV Q24H [facility] Last Admin: 08/20/19 10:24 Dose: 100 mls/hr Ketorolac Tromethamine (Toradol) 30 mg IVPUSH Q6H PRN PRN Reason: Pain (moderate 4-6) Stop: 08/24/19 10:12 Last Admin: 08/20/19 12:00 Dose: 30 mg Lamotrigine (Lamotrigine) 50 mg PO BEDTIME [facility] Last Admin: 08/19/19 20:44 Dose: 50 mg Ondansetron HCl (Zofran) 4 mg IV Q4H PRN PRN Reason: Nausea/Vomiting Last Admin: 08/20/19 04:27 Dose: 4 mg Pantoprazole Sodium (Protonix) 40 mg PO ACBREAKFAST [facility] Last Admin: 08/20/19 07:13 Dose: 40 mg Polyethylene Glycol (Miralax) 17 gm PO DAILY PRN PRN Reason: Constipation Last Admin: 08/19/19 19:37 Dose: 17 gm Senna/Docusate Sodium (Senna Plus) 1 tab PO BID PRN PRN Reason: Constipation Last Admin: 08/20/19 07:23 Dose: 1 tab Sodium Chloride (Saline Flush) 10 ml FLUSH ASDIRECTED PRN PRN Reason: Keep Vein Open Discontinued Medications Bisacodyl (Dulcolax) 10 mg RECTAL ONETIME ONE Stop: 08/19/19 13:26 Last Admin: 08/19/19 13:35 Dose: 10 mg Fentanyl (Sublimaze) 50 mcg IVPUSH ONETIME ONE Stop: 08/18/19 06:41 Last Admin: 08/18/19 06:53 Dose: 50 mcg Hydromorphone HCl (Dilaudid) 0.5 mg IVPUSH ONETIME ONE Stop: 08/18/19 09:09 Last Admin: 08/18/19 09:11 Dose: 0.5 mg Ceftriaxone Sodium 1 gm/ (Sodium Chloride) 50 mls @ 100 mls/hr IV Q24H [facility] Last Admin: 08/18/19 07:04 Dose: 100 mls/hr Sodium Chloride (Normal Saline) 1,000 mls @ 999 mls/hr IV .BOLUS STA Stop: 08/18/19 07:36 Last Admin: 08/18/19 06:54 Dose: 999 mls/hr Sodium Chloride (Normal Saline) 1,000 mls @ 250 mls/hr IV ASDIRECTED [facility] Last Admin: 08/18/19 08:38 Dose: 250 mls/hr Sodium Chloride (Normal Saline) 1,000 mls @ 50 mls/hr IV ASDIRECTED [facility] Last Admin: 08/19/19 15:40 Dose: 125 mls/hr Sodium Chloride (Normal Saline) 1,000 mls @ 50 mls/hr IV ASDIRECTED [facility] Stop: 08/20/19 11:30 Ketamine HCl (Ketalar) 15 mg IV ONETIME ONE Stop: 08/18/19 06:41 Last Admin: 08/18/19 06:53 Dose: 15 mg Ketorolac Tromethamine (Toradol) 15 mg IVPUSH ONETIME ONE Stop: 08/18/19 07:42 Last Admin: 08/18/19 07:48 Dose: 15 mg Lamotrigine (Lamotrigine) 25 mg PO DAILY [facility] Last Admin: 08/18/19 11:31 Dose: Not Given Magnesium Hydroxide (Milk Of Magnesia) 30 ml PO ONETIME ONE Stop: 08/20/19 08:47 Last Admin: 08/20/19 09:16 Dose: 30 ml Non-Formulary Medication (Estradiol [Estradiol]) 1 tab PO DAILY [facility] Last Admin: 08/18/19 13:00 Dose: Not Given Non-Formulary Medication (Omeprazole [Omeprazole]) 1 tab PO DAILY [facility] Last Admin: 08/18/19 11:32 Dose: Not Given Ondansetron HCl (Zofran) 4 mg IVPUSH ONETIME ONE Stop: 08/18/19 07:43 Last Admin: 08/18/19 07:48 Dose: 4 mg Potassium Chloride (Klor-Con M20) 40 meq PO ONETIME ONE Stop: 08/19/19 08:01 Last Admin: 08/19/19 09:13 Dose: 40 meq - Exam General: Reports: Alert, Oriented, Cooperative, No Acute Distress Lungs: Reports: Normal Respiratory Effort Cardiovascular: Reports: Regular Rate, Regular Rhythm GI/Abdominal Exam: Soft, No Distention Extremities: No Pedal Edema Psy/Mental Status: Reports: Alert, Normal Affect
== END 2019-08-20 15:45 | disposition home or self-care (01) | DRG 690 ==
LOC: JP.ED 06:00 → JP.MS 08:33
PROVIDERS: ADMIT Hospitalist; ATTEND Internal Medicine
DX: N12 Tubulo-interstitial nephritis, not specified as acute or chronic (principal); Z79.899 Other long term (current) drug therapy; Z79.890 Hormone replacement therapy; Z88.8 Allergy status to other drugs, medicaments and biological substances; Z90.89 Acquired absence of other organs; Z90.49 Acquired absence of other specified parts of digestive tract; Z90.710 Acquired absence of both cervix and uterus; Z87.891 Personal history of nicotine dependence
CPT/HCPCS: 36415; 80053; 81001; 83605; 83690; 84145; 85025; 86140; 87040 ×2; 87086; 87088 ×2; 87186 ×2; 96365; 96375; 99283; 99284; J0696; J1885; J2405; J3010; J7030; J7050; 80048; 85027; 94762; A9270-GY; J1170; J1650